=== PATIENT | male | born 1985 | race Two or more races ===

== ENCOUNTER 2021-01-26 10:27 | Inpatient (IN) | payer OTHER ==
[~2021-01-26] VITALS: Ht 154.9 cm; Wt 86.2 kg
[2021-01-26] MEDS ORDERED: AZITHROMYCIN 500MG/ 250ML 250 ML IV ONE (11:15)
[2021-01-26] MEDS ORDERED: cefTRIAXone 1GM/50ML D5W 50 ML IV ONE (11:15)
[2021-01-26] MEDS ORDERED: DexAMETHasone SOD PHOS 10MG/1ML VIAL INJ IV ONE (11:15)
[2021-01-26 11:22] LABS: Basophils # (auto) 0 10 ^3/uL (0-0.2); Eosinophils # (auto) 0 10 ^3/uL (0-0.8); Monocytes # (auto) 0 10 ^3/uL (0-1.3); Neutrophils # (auto) 0.6 10 ^3/uL (1.6-8.6)
[2021-01-26 11:25] LABS: Basophils % (auto) 0.5 % (0.0-2.0); Eosinophils % (auto) 0.3 % (0.0-7.0); Hematocrit 43.2 % (41.0-53.0); Hemoglobin 14.3 g/dL (13.5-17.5); Lymphocytes # (auto) 0.2 10 ^3/uL (0.4-5.4); Lymphocytes % (auto) 21.6 % (10.0-50.0); Mean Corpuscular Hemoglobin 31.2 pg (28.0-32.0); Mean Corpuscular Hgb Conc. 33.1 g/dL (32.0-36.0); Mean Corpuscular Volume 94.1 fL (80.0-100.0); Neutrophils % (auto) 75.6 % (37.0-80.0); Red Blood Cells 4.59 10^6/uL (4.5-5.90); Red Cell Distribution Width 16.2 % (11.8-14.3)
[2021-01-26 11:29] LABS: White Blood Cell 0.7 10^3/uL (4.4-10.8)
[2021-01-26 11:40] LABS: Calcium 9.2 mg/dL (8.5-10.1)
[2021-01-26 11:48] LABS: Albumin 2.5 g/dL (3.4-5.0); BUN/Creatinine Ratio 10.9; Bilirubin, Total 2.6 mg/dL (0.2-1.0); Total Protein 8.3 g/dL (6.4-8.2)
[2021-01-26 11:54] LABS: Potassium 2.7 mmol/L (3.5-5.1)
[2021-01-26] MEDS ORDERED: POTASSIUM EFFERVESENT TAB 25 MEQ PO ONE (12:00)
[2021-01-26 12:13] LABS: Lactic Acid w/Reflex 9.2 mmol/L (0.4-2.0)
[2021-01-26] MEDS ORDERED: DEXTROSE (50%) 50ML SYRG IV PRN ×4 (12:45→15:45)
[2021-01-26] MEDS ORDERED: INSULIN LANTUS (GLARGINE) 1 /0.01ml (100units/ml) SC ONE ×2 (12:45→15:45)
[2021-01-26] MEDS ORDERED: SODIUM CHLORIDE 0.9% 1,000 ML IV ONE (12:45)
[2021-01-26] MEDS ORDERED: InsuLIN R (HUMAN) 100 UNITS in SODIUM CHL 0.9% 99 ML IV SCH ×2 (12:45→15:45)
[2021-01-26] MEDS ORDERED: MORPHINE SULFATE INJECTION 2 MG/ML SYRG IV PRN ×3 (13:15→16:00)
[2021-01-26] MEDS ORDERED: NITROGLYCERIN 0.4 MG SL TAB SL PRN ×2 (13:15→16:00)
[2021-01-26] MEDS ORDERED: ACCU-CHEK COMFORT CURVE STRIP VI SCH ×3 (13:30→17:00)
[2021-01-26] MEDS ORDERED: LORazepam 2MG/ML-1ML VIAL IV ONE (15:00)
[2021-01-26] MEDS: chlordiazePOXIDE HCL 25 MG CAP PO SCH ×2 (15:30→23:30)
[2021-01-26] MEDS ORDERED: AMPICILLIN & SULBACTAM SODIUM 3 GM in SODIUM CHL 0.9% 100 ML IV SCH (15:30)
[2021-01-26] MEDS ORDERED: metroNIDAZOLE 500MG/100ML 100 ML IV ONE (15:30)
[2021-01-26] MEDS ORDERED: POTASSIUM CHLORIDE 80 MEQ, LIDOCAINE 1% (LOCAL ANESTH.) 6 ML in SODIUM CHL 0.9% 500 ML IV ONE (15:45)
[2021-01-26] MEDS ORDERED: MULTIPLE VITAMINS W/ MINERALS TAB PO ONE (15:45)
[2021-01-26] MEDS ORDERED: SODIUM CHLORIDE 0.9% 1,000 ML IV SCH (15:45)
[2021-01-26] MEDS ORDERED: PANTOPRAZOLE 40 MG/10 ML VIAL INJ IV ONE (15:45)
[2021-01-26] MEDS ORDERED: MAGNESIUM SULFATE 1GM/100ML 200 ML IV ONE (15:45)
[2021-01-26] MEDS ORDERED: FOLIC ACID 1 MG TAB PO ONE (15:45)
[2021-01-26] MEDS ORDERED: SODIUM CHLORIDE 0.9% 3,000 ML IV ONE (15:45)
[2021-01-26] MEDS ORDERED: SOD CHL 0.9%/ KCL 40MEQ 1,000 ML IV PRN (15:45)
[2021-01-26] MEDS ORDERED: D5W/SOD CHLO 0.9% 1,000 ML IV PRN (15:45)
[2021-01-26] MEDS ORDERED: THIAMINE 100mg/ml INJ (200mg/2ml VIAL) IV ONE (15:45)
[2021-01-26 15:50] VITALS: BP 141/111
[2021-01-26] MEDS ORDERED: LORazepam 0.5 MG TAB PO PRN (16:00)
[2021-01-26] MEDS ORDERED: METOCLOPRAMIDE HCL 5MG/ml INJ 2ml VIAL IV PRN (16:00)
[2021-01-26] MEDS ORDERED: DOCUSATE SOD 100 MG CAP PO PRN (16:00)
[2021-01-26] MEDS ORDERED: NOREPINEPHRINE 8 MG/250ML KIT 250 ML IV SCH ×3 (16:00→21:30)
[2021-01-26] MEDS ORDERED: ALUM & MAG HYDROX-SIMETH LIQ(MAALOX) 30 ML PO PRN (16:00)
[2021-01-26] MEDS ORDERED: MEROPENEM 500MG IVPB 50 ML IV ONE (16:00)
[2021-01-26] MEDS ORDERED: HYDROcodone-ACET 5/325MG TAB PO PRN (16:00)
[2021-01-26] MEDS: InsuLIN R (HUMAN) 100 UNITS in SODIUM CHL 0.9% 99 ML IV SCH ×4 (16:04→18:40)
[2021-01-26] MEDS ORDERED: FILGRASTIM(TBO) 480 MCG/0.8 ML SYRG SC ONE (16:15)
[2021-01-26 16:30] VITALS: BP 98/64
[2021-01-26] MEDS: ACCU-CHEK COMFORT CURVE STRIP VI SCH ×2 (16:30→18:00)
[2021-01-26] MEDS ORDERED: InsuLIN REG 1unit/0.01ml Soln (100units/ml) SC SCH ×4 (17:00→22:00)
[2021-01-26 18:35] VITALS: BP 154/86
[2021-01-26] MEDS ORDERED: ROCURONIUM 10MG/ML 10ML VIAL IV ONE ×2 (20:33→23:30)
[2021-01-26] MEDS ORDERED: ETOMIDATE (2MG/ML) 20ML VIAL IV ONE ×2 (20:34→23:30)
[2021-01-26] MEDS ORDERED: MIDAZOLAM DRIP 50 mg/50mL 50 ML IV SCH (20:45)
[2021-01-26] MEDS ORDERED: NOREPINEPHRINE 8 MG/250ML KIT 250 ML IV ONE (20:59)
[2021-01-26 21:30] VITALS: BP 118/71
[2021-01-26] MEDS ORDERED: EPINEPHrine HCL 250 ML IV SCH ×2 (21:30→23:30)
[2021-01-26] MEDS ORDERED: PANTOPRAZOLE 40 MG/10 ML VIAL INJ IV SCH (22:00)
[2021-01-26] MEDS ORDERED: metroNIDAZOLE 500MG/100ML 100 ML IV SCH (22:00)
[2021-01-26 22:17] LABS: Albumin 1.6 g/dL (3.4-5.0); Anion Gap 18 (5-15); Blood Urea Nitrogen 43 mg/dL (7-18); Calcium 7.7 mg/dL (8.5-10.1); Carbon Dioxide 18 mmol/L (21-32); Chloride 106 mmol/L (98-107); Glucose 218 mg/dL (74-106); Lipase 168 U/L (73-393); Magnesium 2.8 mg/dL (1.6-2.6); Sodium 142 mmol/L (136-145)
[2021-01-26 22:21] LABS: Lactic Acid w/Reflex 12.9 mmol/L (0.4-2.0)
[2021-01-26 22:25] LABS: Alanine Aminotransferase 87 U/L (16-61); Alkaline Phosphatase 86 U/L (45-117); Aspartate Aminotransferase 394 U/L (15-37); Cholesterol 139 mg/dL (< 200); GFR African American 23 mL/min; GFR Non-African American 19 mL/min; HDL Cholesterol 12 mg/dL (40-59); Total Protein 6.2 g/dL (6.4-8.2); Triglycerides 650 mg/dL (< 150)
[2021-01-26 22:31] LABS: Amphetamine Screen, Urine NEGATIVE (NEGATIVE); Barbiturate Scree,Urine NEGATIVE (NEGATIVE); Benzodiazephine Screen, Urine NEGATIVE (NEGATIVE); Cannabinoid Screen, Urine NEGATIVE (NEGATIVE); Cocaine Screen, Urine NEGATIVE (NEGATIVE); Opiate Scree,Urine NEGATIVE (NEGATIVE); Phencyclidine Screen, Urine NEGATIVE (NEGATIVE)
[2021-01-26 22:36] LABS: INR 1.37 (0.9-1.15); Partial Thromboplastin Time 40.7 sec (23.6-33.0)
[2021-01-26 22:43] LABS: Urine Amorphous Crystal FEW /hpf (None Seen); Urine Bacteria FEW /hpf (None Seen); Urine Blood 1+ /uL (Negative); Urine Mucus FEW (None Seen); Urine Specific Gravity 1.025 (1.001-1.035); Urine WBC 63 /hpf (0 - 3); Urine WBC Clumps PRESENT /hpf (None Seen)
[2021-01-26 22:46] LABS: Hematocrit 45.4 % (41.0-53.0); Hemoglobin 14.1 g/dL (13.5-17.5); Mean Corpuscular Hemoglobin 31.1 pg (28.0-32.0); Mean Corpuscular Volume 100.2 fL (80.0-100.0); Red Blood Cells 4.54 10^6/uL (4.5-5.90); Red Cell Distribution Width 16.6 % (11.8-14.3)
[2021-01-26 22:48] LABS: Potassium 2.8 mmol/L (3.5-5.1)
[2021-01-26 22:50] LABS: White Blood Cell 1.1 10^3/uL (4.4-10.8)
[2021-01-26 22:51] LABS: Basophils % (manual) 0 (0.0-2.0); Blast Cells 0; Eosinophils % (manual) 0 (0-7); Promyelocytes % 0; Reactive Lymphocytes 0
[2021-01-26] MEDS ORDERED: POTASSIUM CHL 20MEQ/100ML 100 ML IV ONE (23:00)
[2021-01-26] MEDS ORDERED: ASPirin 81 mg TAB GT ONE (23:00)
[2021-01-27] MEDS ORDERED: EPINEPHrine HCL 1 MG/10 ML SYRG ONE (00:21)
[2021-01-27 00:30] VITALS: BP 112/57
[2021-01-27] MEDS ORDERED: VASOPRESSIN 50 UNITS in D5W 5% 247.5 ML IV SCH (01:00)
[2021-01-27] MEDS ORDERED: VASOPRESSIN 20 UNIT/ML ONE ×2 (01:05→01:08)
[2021-01-27] MEDS ORDERED: SODIUM BICARBONATE 8.4 % INJ 50ML VIAL IV ONE (01:11)
[2021-01-27 01:15] VITALS: BP 52/36
[2021-01-27 01:48] LABS: Band Neutrophils % (manual) 18; Lymphocytes % (manual) 56 (10.0-50.0); Metamyelocytes % 2; Monocytes % (manual) 15 (0-12); Myelocytes % 1
[2021-01-27] MEDS ORDERED: MEROPENEM 500MG IVPB 50 ML IV SCH (05:00)
[2021-01-27] MEDS ORDERED: MULTIPLE VITAMINS W/ MINERALS TAB PO SCH (10:00)
[2021-01-27] MEDS ORDERED: FOLIC ACID 1 MG TAB PO SCH (10:00)
[2021-01-27] MEDS ORDERED: INSULIN LANTUS (GLARGINE) 1 /0.01ml (100units/ml) SC SCH ×2 (10:00)
[2021-01-27] MEDS ORDERED: ENOXAPARIN SOD 30 MG/0.3 ML SYRINGE SC SCH (10:00)
[2021-01-27] MEDS ORDERED: PANTOPRAZOLE 40 MG/10 ML VIAL INJ IV SCH (10:00)
[2021-01-27] MEDS ORDERED: chlordiazePOXIDE HCL 25 MG CAP PO SCH (10:00)
[2021-01-27] MEDS ORDERED: FILGRASTIM(TBO) 480 MCG/0.8 ML SYRG SC SCH (10:00)
[2021-01-27] MEDS ORDERED: ASPirin 81 mg TAB GT SCH (10:00)
[2021-01-27] MEDS ORDERED: THIAMINE HCL 100 MG TAB PO SCH (10:00)
[2021-01-27] MEDS ORDERED: ATROPINE SULFATE 0.4 MG/1 ML VIAL IV ONE (13:35)
[2021-01-28] MEDS ORDERED: chlordiazePOXIDE HCL 25 MG CAP PO SCH (10:00)
[2021-01-29] MEDS ORDERED: chlordiazePOXIDE HCL 25 MG CAP PO SCH (07:00)
[2021-01-29 12:55] LABS: Hepatitis A Ab IgM Negative
[2021-01-29 13:30] LABS: Hepatitis B Core IgM Negative
[2021-01-29 13:48] LABS: Hepatitis C Antibody Negative (Negative)
== END 2021-01-27 01:59 | DRG 720 ==
LOC: ER 10:27 → TELE 13:12
PROVIDERS: ADMIT Hospitalist; ATTEND Hospitalist
PROC: 5A09357 Assistance with Respiratory Ventilation, Less than 24 Consecutive Hours, Continuous Positive Airway Pressure (ICD-10-PCS; principal; 2021-01-26)
DX: A41.9 Sepsis, unspecified organism (principal); K72.00 Acute and subacute hepatic failure without coma; J69.0 Pneumonitis due to inhalation of food and vomit; N17.0 Acute kidney failure with tubular necrosis; R65.21 Severe sepsis with septic shock; K70.10 Alcoholic hepatitis without ascites; E11.10 Type 2 diabetes mellitus with ketoacidosis without coma; D70.9 Neutropenia, unspecified; E44.0 Moderate protein-calorie malnutrition; D69.6 Thrombocytopenia, unspecified; E11.22 Type 2 diabetes mellitus with diabetic chronic kidney disease; E11.40 Type 2 diabetes mellitus with diabetic neuropathy, unspecified; Z66 Do not resuscitate; N18.4 Chronic kidney disease, stage 4 (severe); E78.5 Hyperlipidemia, unspecified; E66.01 Morbid (severe) obesity due to excess calories; E87.6 Hypokalemia; F10.239 Alcohol dependence with withdrawal, unspecified; I12.9 Hypertensive chronic kidney disease with stage 1 through stage 4 chronic kidney disease, or unspecified chronic kidney disease; Z20.822 Contact with and (suspected) exposure to COVID-19; K29.20 Alcoholic gastritis without bleeding; R79.89 Other specified abnormal findings of blood chemistry; Z68.35 Body mass index [BMI] 35.0-35.9, adult; Z91.19 Patient's noncompliance with other medical treatment and regimen
CPT/HCPCS: 31500; 36415; 36600; 51702; 71045; 80053; 80061; 80074; 80307; 81001; 82010; 82728; 82805; 82962; 83036; 83605; 83690; 83735; 83930; 84484; 85007; 85025; 85027; 85379; 85610; 85730; 86141; 86850; 86900; 86901; 87040; 87070; 87077; 87086; 87186; 87205; 87426; 93005; 94002; 94660; 96361; 96365; 96366; 96367; 96368; 96372; 96375; 99291; C9113; G0378; J0171; J0461; J0696; J1100; J1447; J1815; J2001; J2185; J2250; J3480; J3490; J7060